=== PATIENT | female | born 1945 | race Caucasian/White ===

== ENCOUNTER → 2020-07-21 | Day surgery (SDC) | payer MEDICARE, OTHER ==
[~2020-07-21] MED LIST: ACETAMINOPHEN500 M1 PO; ALLOPURINOL100 MG PO; AMIODARONE HCL200 MG PO; BACLOFEN 10MG T10 MG PO; COLACE100 MG PO; CRANBERRY250 MG PO; ELIQUIS5 MG PO; LASIX20 MG PO; LOPRESSOR25 MG PO; NORCO 5-325 TA1 EACH PO; PERCOCET 5-3251 EACH PO; PRILOSEC20 MG PO; SALINE NASAL SP88 M1; SENNA LAXATIVE8.6 MG PO; SYNTHROID125 MCG PO; TOLTERODINE TART2 MG PO; TROLAMINE SALIC85 GM TOP; VITAMIN B122500 MC1 PO; VITAMIN B122500 MCG PO; ZINC OXIDE28 GM TOP; ZOFRAN4 M1 PO
[2020-07-21 12:13] LABS: HCT 41.3 % (37.0-47.0); HGB 13.4 g/dl (12.5-16.0); MCH 32.1 pg (25.0-31.0); MCHC 32.4 g/dL (32.0-36.0); MPV 12.3 fL (6.0-9.5); RBC 4.17 M/uL (4.20-5.40); RDW 13.5 % (11.5-14.0); WBC 4.4 K/uL (4.0-10.5)
== END | disposition home or self-care (01) ==
LOC: FAS 10:51
PROVIDERS: Orthopaedic Surgery
DX: G56.21 Lesion of ulnar nerve, right upper limb (principal); G56.01 Carpal tunnel syndrome, right upper limb; I48.91 Unspecified atrial fibrillation; E03.9 Hypothyroidism, unspecified; I13.0 Hypertensive heart and chronic kidney disease with heart failure and stage 1 through stage 4 chronic kidney disease, or unspecified chronic kidney disease; N18.30 Chronic kidney disease, stage 3 unspecified; I50.22 Chronic systolic (congestive) heart failure; Z79.01 Long term (current) use of anticoagulants; Z79.899 Other long term (current) drug therapy
CPT/HCPCS: 36415; 71045; 93005; J0690; J1170; J2250; J2405; J2704; J3010; J7120